=== PATIENT | female | born 1955 ===

== ENCOUNTER 2018-05-10 16:55 | Outpatient (CLI) | payer OTHER | END 2018-05-10 16:56 | disposition home or self-care (01) | LOC: LAB 16:55 | DX: N20.0 Calculus of kidney (principal); N30.00 Acute cystitis without hematuria ==

== ENCOUNTER 2018-05-16 05:45 | Inpatient (IN) | payer OTHER ==
[~2018-05-16] VITALS: Ht 167.6 cm; Wt 78.9 kg
[~2018-05-16 05:45] MED LIST: ASA81 MG PO; ATENOLOL-CHLOR1 EACH PO; ATORVASTATIN CA10 MG PO; AZOR 5-20 MG T1 EACH PO; FAMOTIDINE40 MG PO; OPTIMAL D350000 UNIT PO
== END 2018-05-18 09:58 | disposition home or self-care (01) | DRG 670 ==
LOC: CIR.AMB 05:45 → O/R 15:17 → SURH 15:17 → CIR.AMB 15:33 → SURH 16:32
PROVIDERS: Urology
PROC: BT1DZZZ Fluoroscopy of Right Kidney, Ureter and Bladder (ICD-10-PCS; 2018-05-16)
PROC: 0TC38ZZ Extirpation of Matter from Right Kidney Pelvis, Via Natural or Artificial Opening Endoscopic (ICD-10-PCS; principal; 2018-05-16 12:30)
PROC: BT11YZZ Fluoroscopy of Right Kidney using Other Contrast (ICD-10-PCS; 2018-05-18)
DX: N13.6 Pyonephrosis (principal); I10 Essential (primary) hypertension

== ENCOUNTER 2018-05-24 09:03 | Outpatient (CLI) | payer OTHER | END 2018-05-24 09:11 | disposition home or self-care (01) | LOC: LAB 09:03 | DX: N20.0 Calculus of kidney (principal) ==